=== PATIENT | male | born 1980 | race Caucasian/White ===

== ENCOUNTER 2020-01-28 07:07 | Emergency (ER) | payer BC ==
[2020-01-28 07:22] VITALS: BP 136/99
--- NOTE | 2020-01-28 07:30 | UC ---
Upper Extremity HPI - HPI Summary HPI Summary: 39 year old male presents with complaint of "right carpal tunnel syndrome." Notes constant pressure in his right hand over the past day. Right wrist and hand is painful and swollen. He has been using ice and compression at home. He denies injury nor fall. States diagnosed with CTS years ago, uncertain if he has had NCT previously. Does repetative motion and heavy lifting with work. - History of Current Complaint Chief Complaint: UCUpperExtremity Stated Complaint: RIGHT WRIST COMPLAINT Time Seen by Provider: 01/28/20 07:26 Hx Obtained From: Patient Onset/Duration: Gradual Onset Pain Intensity: 6 - Allergies/Home Medications Allergies/Adverse Reactions: Allergies Allergy/AdvReac Type Severity Reaction Status Date / Time No Known Allergies Allergy Verified 01/28/20 07:21 Home Medications: Home Medications Ibuprofen [Ibuprofen 200 MG] 600 mg PO Q6H PRN 08/05/15 [History Confirmed 01/27] PMH/Surg Hx/FS Hx/Imm Hx Previously Healthy: Yes - Surgical History Surgical History: None - Social History Alcohol Use: Occasionally Substance Use Type: None Smoking Status (MU): Heavy Every Day Tobacco Smoker Type: Cigarettes Amount Used/How Often: 1/2 PPD Review of Systems All Other Systems Reviewed And Are Negative: Yes Constitutional: Positive: Negative Skin: Positive: Negative Eyes: Positive: Negative ENT: Positive: Negative Respiratory: Positive: Negative Cardiovascular: Positive: Negative Gastrointestinal: Positive: Negative Genitourinary: Positive: Negative Neurovascular: Negative: Decreased Sensation, Decreased Pulses Musculoskeletal: Positive: Other: - swelling and tingling right hand.. Negative : Decreased ROM Neurological/Mental Status: Positive: Paresthesia, Other - +tinnells and phalen' s sign right UE.. Negative: Weakness Psychological: Positive: Negative Physical Exam Triage Information Reviewed: Yes Appearance: Well-Appearing Vital Signs: Initial Vital Signs Temp 98.4 F 01/28/20 07:17 Pulse 62 01/28/20 07:17 Resp 18 01/28/20 07:17 BP 136/99 01/28/20 07:17 Pulse Ox 99 01/28/20 07:17 Vital Signs Reviewed: Yes Eye Exam: Normal Musculoskeletal: Positive: Strength Intact - bilateral gas tender strength, ROM Intact , Other: - Capillary refill brisk all digits of hand, no pallor, color symmetrical bilateral hands. Mild swelling right hand compared to left. Skin: Negative: Rashes Upper Extremity Course/Dx - Course Course Of Treatment: He denies the need for a work excuse. - Differential Dx/Diagnosis Differential Diagnosis/HQI/PQRI: Sprain Provider Diagnosis: Carpal tunnel syndrome of right wrist Discharge ED - Sign-Out/Discharge Documenting (check all that apply): Patient Departure All imaging exams completed and their final reports reviewed: No Studies - Discharge Plan Condition: Stable Disposition: HOME Patient Education Materials: Paresthesia (ED) Referrals: No Primary Care Phys,NOPCP [Primary Care Provider] - Oj Christianson MD [Medical Doctor] - Additional Instructions: Wear the right wrist splint regularly, even at night. Keep right hand elevated. I have provided you a list pf primary care physicians and recommend you set up an appointment along with orthopedic surgery for further evaluation. - Billing Disposition and Condition Condition: STABLE Disposition: Home
== END 2020-01-28 07:54 | disposition home or self-care (01) ==
LOC: UCCORT 07:07
DX: G56.01 Carpal tunnel syndrome, right upper limb (principal); F17.210 Nicotine dependence, cigarettes, uncomplicated
CPT/HCPCS: 99201; G0463